=== PATIENT | female | born 1965 | race Caucasian/White ===

== ENCOUNTER 2021-01-07 15:58 | Inpatient (IN) | payer MEDICAID ==
[~2021-01-07] VITALS: Ht 157.5 cm; Wt 56.7 kg
[2021-01-07] MEDS ORDERED: OLAN10TA3 PO (18:21)
[2021-01-07] MEDS ORDERED: METH-386 PO (19:29)
[2021-01-07] MEDS ORDERED: PROP20TA18 PO (19:29)
[2021-01-07] MEDS ORDERED: APIX5TAB PO (19:29)
[2021-01-07] MEDS ORDERED: INFLUENZA VIRUS VACCINE QVS 2020-21 (6MO+)/PF 60 MCG/0.5 ML SYRINGE IM ONE (19:30)
[2021-01-07] MEDS ORDERED: HALOPERIDOL 5 MG TABLET PO PRN (19:30)
[2021-01-07 20:05] VITALS: BP 119/77
[2021-01-07] MEDS ORDERED: PNEUMOCOCCAL VACCINE POLYVALENT 0.5 ML VIAL [PPSV23] IM ONE (20:15)
[2021-01-08 03:47] VITALS: BP 112/67
[2021-01-08] MEDS ORDERED: CloNIDine HCL 0.1 MG TABLET PO PRN (07:30)
[2021-01-08] MEDS ORDERED: DOCUSATE SODIUM 100 MG CAPSULE PO PRN (07:30)
[2021-01-08] MEDS ORDERED: LOPERAMIDE HCL 2 MG CAPSULE PO PRN (07:30)
[2021-01-08] MEDS ORDERED: ALBUTEROL SULFATE HFA 90 MCG/PUFF 8 GM INHALER IH PRN (07:30)
[2021-01-08] MEDS ORDERED: GuaiFENesin/D-METHORPHAN [SUGAR-FREE] 200-20MG/10 ML SYRUP UDCUP PO PRN (07:30)
[2021-01-08] MEDS ORDERED: NICOTINE 14 MG/24 HOUR PATCH TD PRN (07:30)
[2021-01-08] MEDS ORDERED: MAG HYDROX/AL HYDROX/SIMETH ES 30 ML SUSPENSION UDCUP PO PRN (07:30)
[2021-01-08] MEDS ORDERED: ONDANSETRON HCL 4 MG TABLET PO PRN (07:30)
[2021-01-08] MEDS ORDERED: MAGNESIUM HYDROXIDE SUSPENSION 30 ML UDCUP PO PRN (07:30)
[2021-01-08] MEDS ORDERED: ACETAMINOPHEN 325 MG TABLET PO PRN (07:30)
[2021-01-08] MEDS ORDERED: PETROLATUM,WHITE 28 GM JELLY TP PRN (07:30)
[2021-01-08] MEDS: LORazepam 2 MG TABLET PO PRN (07:53)
[2021-01-08 07:55] LABS: BASOPHILS % (AUTO) 0.3 % (0.0-2.0); EOSINOPHILS % (AUTO) 0.8 % (1.0-6.0); HEMATOCRIT 38.4 % (36-46); HEMOGLOBIN 13.2 g/dL (12.0-16.0); LYMPHOCYTES # (AUTO) 1.7 K/uL (1.0-4.8); LYMPHOCYTES % (AUTO) 20.8 % (22.0-44.0); MEAN CORPUSCULAR HEMOGLOBIN 31.4 pg (26.0-34.0); MEAN CORPUSCULAR HGB CONC 34.3 G/dL (31.0-37.0); MEAN CORPUSCULAR VOLUME 91 fL (80-100); MONOCYTES # (AUTO) 0.7 K/uL (0.1-1.0); MONOCYTES % (AUTO) 8.7 % (2.0-9.0); NEUTROPHILS # (AUTO) 5.6 K/uL (1.8-7.7); NEUTROPHILS % (AUTO) 69.4 % (40.0-70.0); PLATELET COUNT (AUTO) 256 K/uL (150-450); RED CELL DISTRIBUTION WIDTH 15.3 % (11.5-14.5)
[2021-01-08] MEDS: PROPRANOLOL HCL 20 MG TABLET PO SCH ×3 (08:01→16:20)
[2021-01-08] MEDS: APIXABAN 5 MG TABLET PO SCH ×3 (08:02→16:20)
[2021-01-08] MEDS: METHIMAZOLE 5 MG TABLET PO SCH ×2 (08:02→12:09)
[2021-01-08 08:12] LABS: HEMOGLOBIN A1C 5.1 % (3.8-5.6)
[2021-01-08 08:18] VITALS: BP 129/81
[2021-01-08 08:29] LABS: ALANINE AMINOTRANSFERASE 25 U/L (12-78); ALBUMIN 3.8 g/dL (3.4-5.0); ALKALINE PHOSPHATASE 243 U/L (46-116); ANION GAP 8 mmol/L (8-16); ASPARTATE AMINOTRANSFERASE 20 U/L (15-37); BILIRUBIN,TOTAL 0.4 mg/dL (0.1-1.0); CALCIUM, TOTAL 8.8 mg/dL (8.8-10.5); CARBON DIOXIDE 26 mmol/L (22-29); CHLORIDE 104 mmol/L (98-107); CHOL/HDL RATIO 2.3 (3.9-5.7); CHOLESTEROL 115 mg/dL (131-200); CREATININE 0.83 mg/dL (0.60-1.30); FREE T4 (FREE THYROXINE) 0.98 ng/dL (0.76-1.46); GLOMERULAR FILTR. RATE CALC > 60 mL/min (>60); GLUCOSE,RANDOM 93 mg/dL (70-110); HDL CHOLESTEROL 50 mg/dL (40-60); LDL CHOL (CALC.) 60 mg/dL (0-130); SODIUM SERUM 138 mmol/L (136-145); THYROID STIMULATING HORMONE 3.93 uIU/mL (0.36-3.74); TOTAL PROTEIN, SERUM 7.6 g/dL (6.4-8.2); TRIGLYCERIDES 27 mg/dL (15-150); UREA NITROGEN, BLOOD 20 mg/dL (7-18)
[2021-01-08] MEDS: OLANZapine 5 MG TABLET PO SCH ×2 (10:09→16:21)
[2021-01-08 16:07] VITALS: BP 116/72
[2021-01-09 01:02] VITALS: BP 102/82
[2021-01-09 07:58] LABS: BASOPHILS % (AUTO) 0.2 % (0.0-2.0); EOSINOPHILS % (AUTO) 1.1 % (1.0-6.0); HEMATOCRIT 39.3 % (36-46); HEMOGLOBIN 13.6 g/dL (12.0-16.0); LYMPHOCYTES # (AUTO) 2.4 K/uL (1.0-4.8); LYMPHOCYTES % (AUTO) 26.5 % (22.0-44.0); MEAN CORPUSCULAR HEMOGLOBIN 31.5 pg (26.0-34.0); MEAN CORPUSCULAR HGB CONC 34.5 G/dL (31.0-37.0); MEAN CORPUSCULAR VOLUME 91 fL (80-100); MONOCYTES # (AUTO) 0.7 K/uL (0.1-1.0); MONOCYTES % (AUTO) 7.9 % (2.0-9.0); NEUTROPHILS # (AUTO) 5.7 K/uL (1.8-7.7); NEUTROPHILS % (AUTO) 64.3 % (40.0-70.0); PLATELET COUNT (AUTO) 272 K/uL (150-450); RED CELL DISTRIBUTION WIDTH 15.2 % (11.5-14.5)
[2021-01-09 08:01] VITALS: BP 133/89
[2021-01-09 08:07] LABS: HEMOGLOBIN A1C 5.2 % (3.8-5.6)
[2021-01-09 08:20] LABS: ALANINE AMINOTRANSFERASE 22 U/L (12-78); ALBUMIN 3.9 g/dL (3.4-5.0); ALKALINE PHOSPHATASE 244 U/L (46-116); ANION GAP 10 mmol/L (8-16); ASPARTATE AMINOTRANSFERASE 16 U/L (15-37); BILIRUBIN,TOTAL 0.5 mg/dL (0.1-1.0); CALCIUM, TOTAL 8.9 mg/dL (8.8-10.5); CARBON DIOXIDE 25 mmol/L (22-29); CHLORIDE 105 mmol/L (98-107); CHOL/HDL RATIO 2.4 (3.9-5.7); CHOLESTEROL 122 mg/dL (131-200); CREATININE 0.67 mg/dL (0.60-1.30); GLOMERULAR FILTR. RATE CALC > 60 mL/min (>60); GLUCOSE,RANDOM 92 mg/dL (70-110); HDL CHOLESTEROL 51 mg/dL (40-60); LDL CHOL (CALC.) 60 mg/dL (0-130); POTASSIUM 4.5 mmol/L (3.5-5.1); SODIUM SERUM 140 mmol/L (136-145); TOTAL PROTEIN, SERUM 7.8 g/dL (6.4-8.2); TRIGLYCERIDES 56 mg/dL (15-150); UREA NITROGEN, BLOOD 19 mg/dL (7-18)
[2021-01-09] MEDS: APIXABAN 5 MG TABLET PO SCH ×2 (08:35→16:18)
[2021-01-09] MEDS: PROPRANOLOL HCL 20 MG TABLET PO SCH ×3 (08:35→16:18)
[2021-01-09] MEDS: OLANZapine 5 MG TABLET PO SCH ×2 (08:35→16:21)
[2021-01-09] MEDS: METHIMAZOLE 5 MG TABLET PO SCH (08:35)
[2021-01-09] MEDS: LORazepam 2 MG TABLET PO PRN (08:53)
[2021-01-09 16:15] VITALS: BP 136/89
[2021-01-09] MEDS: MUPIROCIN CALCIUM 2% 22 GM OINTMENT NASAL SCH (17:00)
[2021-01-10 00:14] VITALS: BP 123/80
[2021-01-10 08:21] VITALS: BP 122/71
[2021-01-10] MEDS: APIXABAN 5 MG TABLET PO SCH ×2 (09:43→16:05)
[2021-01-10] MEDS: METHIMAZOLE 5 MG TABLET PO SCH (09:43)
[2021-01-10] MEDS: MUPIROCIN CALCIUM 2% 22 GM OINTMENT NASAL SCH ×2 (09:43→16:05)
[2021-01-10] MEDS: OLANZapine 5 MG TABLET PO SCH ×2 (09:44→16:06)
[2021-01-10] MEDS: PROPRANOLOL HCL 20 MG TABLET PO SCH ×3 (09:44→16:05)
[2021-01-10 16:02] VITALS: BP 123/72
[2021-01-11 03:15] VITALS: BP 128/74
[2021-01-11 08:05] VITALS: BP 120/72
[2021-01-11] MEDS: APIXABAN 5 MG TABLET PO SCH ×2 (09:09→16:11)
[2021-01-11] MEDS: METHIMAZOLE 5 MG TABLET PO SCH (09:10)
[2021-01-11] MEDS: OLANZapine 5 MG TABLET PO SCH (09:10)
[2021-01-11] MEDS: PROPRANOLOL HCL 20 MG TABLET PO SCH ×3 (09:10→16:11)
[2021-01-11] MEDS: MUPIROCIN CALCIUM 2% 22 GM OINTMENT NASAL SCH ×2 (09:10→16:15)
[2021-01-11] MEDS: LORazepam 2 MG TABLET PO PRN (09:19)
[2021-01-11 16:08] VITALS: BP 116/75
[2021-01-11] MEDS: OLANZapine 10 MG TABLET PO SCH (16:11)
[2021-01-11] MEDS: ZOLPIDEM TARTRATE 10 MG TABLET PO PRN (20:17)
[2021-01-12 00:28] VITALS: BP 114/66
[2021-01-12] MEDS: APIXABAN 5 MG TABLET PO SCH ×2 (08:03→20:53)
[2021-01-12] MEDS: LORazepam 2 MG TABLET PO PRN (08:03)
[2021-01-12] MEDS: MUPIROCIN CALCIUM 2% 22 GM OINTMENT NASAL SCH ×2 (08:03→16:16)
[2021-01-12] MEDS: METHIMAZOLE 5 MG TABLET PO SCH (08:03)
[2021-01-12] MEDS: OLANZapine 10 MG TABLET PO SCH ×2 (08:03→17:00)
[2021-01-12] MEDS: PROPRANOLOL HCL 20 MG TABLET PO SCH ×3 (08:03→16:16)
[2021-01-12 08:10] VITALS: BP 117/69
[2021-01-12 08:20] LABS: COVID AG,FIA SOURCE NASOPHARYNGEAL
[2021-01-12 16:12] VITALS: BP 113/75
[2021-01-12] MEDS: ZOLPIDEM TARTRATE 10 MG TABLET PO PRN (20:53)
[2021-01-13 00:33] VITALS: BP 104/71
[2021-01-13] MEDS: APIXABAN 5 MG TABLET PO SCH (08:00)
[2021-01-13] MEDS: PROPRANOLOL HCL 20 MG TABLET PO SCH ×2 (08:00→12:11)
[2021-01-13] MEDS: METHIMAZOLE 5 MG TABLET PO SCH (08:00)
[2021-01-13] MEDS: OLANZapine 10 MG TABLET PO SCH (08:00)
[2021-01-13] MEDS: MUPIROCIN CALCIUM 2% 22 GM OINTMENT NASAL SCH (08:00)
[2021-01-13 08:07] VITALS: BP 138/87
[2021-01-13] MEDS: LORazepam 2 MG TABLET PO PRN (08:15)
== END 2021-01-13 13:00 | disposition home or self-care (01) | DRG 751 ==
LOC: B3A 19:28
PROVIDERS: ADMIT Psychiatry & Neurology Child & Adolescent Psychiatry; ATTEND Psychiatry & Neurology Child & Adolescent Psychiatry
PROC: 3E0234Z Introduction of Serum, Toxoid and Vaccine into Muscle, Percutaneous Approach (ICD-10-PCS; principal; 2021-01-07)
DX: F23 Brief psychotic disorder (principal); Z59.0 Homelessness; F12.90 Cannabis use, unspecified, uncomplicated; F15.90 Other stimulant use, unspecified, uncomplicated; I27.20 Pulmonary hypertension, unspecified; I48.91 Unspecified atrial fibrillation; E05.00 Thyrotoxicosis with diffuse goiter without thyrotoxic crisis or storm; F17.210 Nicotine dependence, cigarettes, uncomplicated; I10 Essential (primary) hypertension; F10.10 Alcohol abuse, uncomplicated; E03.9 Hypothyroidism, unspecified; Z20.822 Contact with and (suspected) exposure to COVID-19; Z23 Encounter for immunization
CPT/HCPCS: 83036; 84439; 84443; 87081; 87426; 90686; 90732